=== PATIENT | male | born 1960 | race Caucasian/White ===

== ENCOUNTER → 2021-06-21 15:14 | Outpatient (POV) | payer BC, SELFPAY | PROVIDERS: Visit Provider Dermatology | DX: Z00.00 Encounter for general adult medical examination without abnormal findings (principal) ==

== ENCOUNTER 2025-03-01 23:01 | Emergency (ER) | payer BC, SELFPAY ==
[2025-03-01 23:10] VITALS: BP 156/93; PULSE 64; RESP 18; TEMP 36.6; O2SAT 97
[2025-03-01 23:12] VITALS: BP 156/93; PULSE 64; RESP 16; TEMP 36.6; O2SAT 97; BMI 34.0
--- OUTSIDE RECORDS SUMMARY | 2025-03-01 23:17 | XMS_ITS | Clinical Summary ---
Author Organization [facility] Address [address] [place] [address] Phone [email or web address] [email or web address] [email or web address] Care Medical And Health Services Manager Name Role Phone Heather Wall Primary Care Provider Allergies No known active allergies Medications atorvastatin (LIPITOR) 40 MG tabletIndication s:Hypertension, unspecified type,Hypercholes terolemia Take 1 tablet (40 mg total) by mouth 1 (one) time each day. 30 tablet 5 Active tadalafil (Cialis) 10 MG tabletIndication s:Other male erectile dysfunction Take 1 tablet (10 mg total) by mouth 1 (one) time each day if needed for erectile dysfunction. 10 tablet 2 5 Active lisinopril (Prinivil) 20 MG tabletIndication s:Hypertension, unspecified type Take 1 tablet (20 mg total) by mouth 1 (one) time each day. 90 tablet 1 5 Active Active Problems Problem Noted Date Diagnosed Date HTN (hypertension) 04/27/2023 Assessment & Plan (08/26/2024 1:02 PM EST): -He will continue the Lisinopril. Refilled for 6 months. Orders: lisinopril (Prinivil) 20 MG tablet; Take 1 tablet (20 mg total) by mouth 1 (one) time each day. OFFICE VISIT FOLLOW UP; Future Resolved Problems Problem Noted Date Diagnosed Date Resolved Date Moderate left ankle sprain 08/19/2018 0 12/03/2018 Need for prophylactic vaccin ation and inoculation against viral hepatitis 08/11/201101/07 Overview (12/05/2017): Health examination of defined subpopulation 06/22/2011 01/28/2018 Overview (12/05/2017): Cervicalgia 11/23/2010 01/28/2018 Overview (12/05/2017): Myalgia and myositis 11/23/2010 018 Overview (12/05/2017): Laboratory exam ordered as p art of routine general medical examination 10/26/2010 01/28/2018 Overview (12/05/2017): Screening for hypertension 10/13/2010 0 01/28/2018 Overview (12/05/2017): Open wound of finger 02/14/2010 018 Overview (12/05/2017): Tinnitus 01/26/2010 01/28/2018 Overview (12/05/2017): Acute conjunctivitis 10/13/2009 018 Overview (12/05/2017): Other specified disorder of cornea 05/11/2009 01/28/2018 Overview (12/05/2017): Superficial injury of conjunctiva 05/11/2009 01/28/2018 Overview (12/05/2017): Black eye 04/20/2009 01/28/2018 Overview (12/05/2017): Routine general medical exam ination at a health care facility 02/15/2009 01/28/2018 Overview (12/05/2017): Acute upper respiratory infection 09/09/2008 01/28/2018 Overview (12/05/2017): Acute sinusitis 05/12/2008 01/28/2018 Overview (12/05/2017): Other examination of ears and hearing 09/06/2007 01/28/2018 Overview (12/05/2017): Immunizations Immunization Administration Dates Next Due Covid-[address] ([address], 12yr s+) (CVX-207) 09/19/2020,08/22/2020 Hep A, Unspecified (CVX-85) 06/22/2011 Hepatitis B (ENGERIX-B:GSK)(RECOMBIVAX-HB:MERCK) (CVX-43) 08/11/2011,06/22/2011 Influenza (Afluria Fluzone) quad (CVX-158) 04/27/2021 Influenza, (Afluria Fluarix Flulaval Fluzone) quad, PF (CVX-150) 04/17/2022,04/12/2020,04/08/2019,2017 Influenza, unspecified (CVX-88) 04/17/2024 Tdap (ADACEL BOOSTRIX) (CVX-115) 02/14/2010 Family History Medical History Relation Name Comments Heart disease Father Father Macular degeneration Father Father Hypertension Maternal Grandmother maw webber Rheum arthritis Maternal Grandmother maw webber Dementia Mother Chloé Webber Hyperlipidemia Mother Chloé Webber Relation Name Status Comments Father Father Maternal Grandmother maw webber Mother Chloé Webber Social History Tobacco Use Types Packs/Day Years Used Date Smoking Tobacco: Never Smokeless Tobacco: Former Snuff Quit: 10/09/2014 Tobacco Cessation:Counseling Given: Not Answered Comments:None Alcohol Use Standard Drinks/Week Comments Not Currently 1 (1 standard drink = 0.6 oz pure alcohol) drinks a beer about once a week Intimate Partner Violence Answer Date R ecorded Insults You Not on file 10/20/2020 Threatens You Not on file 10/20/2020 Screams at You Not on file 10/20/2020 Physically Hurt Not on file 10/20/2020 Intimate Partner Violence Score Not on file 10/20/2020 Alcohol Use Answer Date Recorded Alcohol Use Status Not Currently 02/26/2024 Financial Resource Strain Answer Date R ecorded In the past 12 months has th e electric, gas, oil, or water company threatened to shut off services in your home? No 08/26/2024 Do problems getting child ca re make it difficult for you to work or study? No 08/26/2024 Do you have a high school degree? Yes 08/26/2024 Do you have a job? Yes 08/26/2024 How often does this describe you? I don't have enough money to pay my bills. Never 08/26/2024 Depression Answer Date Recorded PHQ Total Score 0 10/29/2023 Stress Answer Date Recorded Stress in your Life Low 07/02/2024 Dealing with Stress Moderately effective 024 Physical Activity Answer Date Recorded How often do you engage in m oderate physical activity for 30 minutes or more? Never 08/26/2024 Vigorous Physical Activity Never 08/26 Time Spent Sitting 4 to 6 hours 08/26/2024 Food Insecurity Answer Date Recorded Within the past 12 months, y ou worried that your food would run out before you got money to buy more. Never true 08/26/2024 Within the past 12 months, t he food you bought just didn t last and you didn t have money to get more. Never true 08/26/2024 Transportation Needs Answer Date Record ed In the past 12 months, has l ack of transportation kept you from medical appointments, meetings, work, or from getting things needed for daily living? (check all that apply) No 2024 Housing Stability Answer Date Recorded Are you worried or concerned that in the next two months you may not have stable housing that you own, rent, or stay in as a part of a household? No 08/26/[address] you li ve. Do you have problems with any of the following? (check all that apply) None of the above 08/09 Sex and Gender Information Value Date Recorded Sex Assigned at Not on file Legal Sex Male 9:25 AM CDT Gender Identity Not on file Sexual Orientation Not on file Last Filed Vital Signs Vital Sign Reading Time Taken Comments Blood Pressure 132/86 08/26/2024 10:49 AM EST Pulse 74 08/26/2024 10:49 AM EST Temperature 36.8 C (98.3 F) 08/26/2024 10:49 AM EST Respiratory Rate 16 08/26/2024 10:49 AM EST Oxygen Saturation 96% 08/26/2024 10:49 AM EST Inhaled Oxygen Concentration - - Weight 111 kg (245 lb 6.4 oz) 08/26/2024 10:49 A M EST Height 175.3 cm (5' 9 ) 08/26/2024 10:49 AM EST Body Mass Index 36.24 08/26/2024 10:49 AM EST Plan of Treatment Health Maintenance Due Date Last Done Comments Zoster Immunization (1 of 2) 2010 Dental Cleaning/Exam 10/07/2024 10/08/2023 Influenza Immunization (#1) 03/09/202504/08, 04/17/2022, 04/27/2021, Additional history exists Tetanus Diphtheria and Pertussis Immunization (2 - Td or Tdap) 06/25/2025 02/14/2010 Postponed from 02/15/2020 (Awaiting appt) Annual Preventive Exam 08/26/2025 , 10/29/2023, 10/29/2023, Additional history exists FIT or FOBT Test 09/23/2025 09/23/2024, 08/26/2024 DNA Cologuard 09/30/2027 09/29/2024, 09/06, 08/26/2024 CT Colonography 09/23/2029 09/23/2024, 08/26/2024 Sigmoidoscopy 09/23/2029 09/23/2024, 08/26/2024 Colonoscopy 09/23/2034 09/23/2024, 08/09, 10/02/2016 Colorectal Cancer Screening Combo 09/23/2034 Hepatitis A Immunization Aged Out 06/22/2011 No longer eligible based on patient's age to complete this topic Hepatitis B Immunization Discontinued 08/11/2011, 06/08 Covid-19 Immunization Discontinued 02/06/2022 , 05/11/2021, 09/19/2020, Additional history exists HIV Screening Completed 02/12/2024 Hep B Infection Screening - Triple Screen Completed 02/12/2024 Hepatitis C Screening Completed 02/12/2024 HIB Immunization Aged Out No longer e ligible based on patient's age to complete this topic HPV Immunization Aged Out No longer e ligible based on patient's age to complete this topic Pneumococcal: Ped (0 to 5 Yrs) and At-Risk Member (6 to 64 Yrs) Aged Out No longer eligible based on patient's age to complete this topic Polio Immunization Aged Out No longer eligible based on patient's age to complete this topic Procedures Procedure Name Priority Date/Time Associated Diagnosis Comments COLOGUARD Routine 09/29/2024 7:20 AM EDT Encounter for screening for malignant neoplasm of colon HEPATITIS C ANTIBODY WITH REFLEX TO HCV, RNA, QUANTITATIVE, REAL-TIME PCR Routine 02/12/2024 6:46 AM EDT Annual visit for general adult medical examination with abnormal findings HEPATITIS B SURFACE ANTIGEN Routine 02/12/2024 6:46 AM EDT Annual visit for general adult medical examination with abnormal findings HIV 1/2 AG AND ABS, FOURTH GENERATION W/REFLEXES Routine 02/12/2024 6:46 AM EDT Annual visit for general adult medical examination with abnormal findings from Last 3 Months or Most Recently Relevant to Health Maintenance Results * COLOGUARD (09/29/2024 7:20 AM EDT) Cologuard Result Negative Negative [employer] (CLIA #:[id number]) Comment: NEGATIVE TEST RESULT. A negative Cologuard result indicates a low likelihood that a colorectal cancer (CRC) or advanced adenoma (adenomatous polyps with more advanced pre-malignant features) is present. The chance that a person with a negative Cologuard test has a colorectal cancer is less than 1 in 1500 (negative predictive value >99.9%) or has an advanced adenoma is less than 5.3% (negative predictive value 94.7%). These data are based on a prospective cross-sectional study of 10,000 individuals at average risk for colorectal cancer who were screened with both Cologuard and colonoscopy. (Fernando Soria al, N Engl J Med 2014;370(14):1797-2274) The normal value (reference range) for this assay is negative. COLOGUARD RE-SCREENING RECOMMENDATION: Periodic colorectal cancer screening is an important part of preventive healthcare for asymptomatic individuals at average risk for colorectal cancer. Following a negative Cologuard result, the [place] Cancer Society and U.S. Multi-Society Task Force screening guidelines recommend a Cologuard re-screening interval of 3 years. References: [place] Cancer Society Guideline for Colorectal Cancer Screening: https://www.cancer.org/cancer/vuwcc-jiqyxs-tpazzj/pfnjpaoha-ouwdiwnic-ppkfwjx/ac s-rec ommendations.html.; Ankur DK, Tulio GRANT, Cisco SolisK, Colorectal Cancer Screening: Recommendations for Physicians and Patients from the U.S. Multi-Society Task Force on Colorectal Cancer Screening , Am J Gastroenterology 2017; 112:4775-1660. TEST DESCRIPTION: Composite algorithmic analysis of stool DNA-biomarkers with hemoglobin immunoassay. Quantitative values of individual biomarkers are not reportable and are not associated with individual biomarker result reference ranges. Cologuard is intended for colorectal cancer screening of adults of either sex, 45 years or older, who are at average-risk for colorectal cancer (CRC). Cologuard has been approved for use by the U.S. FDA. The performance of Cologuard was established in a cross sectional study of average-risk adults aged 50-84. Cologuard performance in patients ages 45 to 49 years was estimated by sub-group analysis of near-age groups. Colonoscopies performed for a positive result may find as the most clinically significant lesion: colorectal cancer [4.0%], advanced adenoma (including sessile serrated polyps greater than or equal to 1cm diameter) [20%] or non- advanced adenoma [31%]; or no colorectal neoplasia [45%]. These estimates are derived from a prospective cross-sectional screening study of 10,000 individuals at average risk for colorectal cancer who were screened with both Cologuard and colonoscopy. (Fernando Soria al, N Engl J Med 2014;370(14):8461-6578.) Cologuard may produce a false negative or false positive result (no colorectal cancer or precancerous polyp present at colonoscopy follow up). A negative Cologuard test result does not guarantee the absence of CRC or advanced adenoma (pre-cancer). The current Cologuard screening interval is every 3 years. ([place] Cancer Society and U.S. Multi-Society Task Force). Cologuard performance data in a 10,000 patient pivotal study using colonoscopy as the reference method can be accessed at the following location: www.Vonage/results. Additional description of the Cologuard test process, warnings and precautions can be found at www.BioSETrd.com. Stool 09/29/2024 7:20 AM EDT 09/30/2024 3:20 PM EDT us Heather ERWIN LAB BODY FLUIDS AND STOOLS O RDERABLES Final Result Performing Organization Address [facility] Co de Phone Number [employer] [address] [place] [address] [employer] (CLIA #:[id number]) [address] [place] [place] [address] * Hepatitis C Antibody with Reflex to HCV, RNA, Quantitative, Real-Time PCR ([id number]) (02/12/2024 6:46 AM EDT) HEPATITIS C ANTIBODY NON-REACTI VE NON-REACT ALEXIS [facility] Comment: HCV antibody was non-reactive. There is no laboratory evidence of HCV infection. In most cases, no further action is required. However, if recent HCV exposure is suspected, a test for HCV RNA (test code 94751) is suggested. For additional information please refer to http://education.Relify.zweitgeist/faq/VUK27w8 (This link is being provided for informational/ educational purposes only.) Blood (Blood, Venous) 02/12/2024 6:46 AM EDT 02/13/2024 5:50 AM EDT us Sandra Soriano NP LAB BLOOD ORDERABLES Final Res ult Performing Organization Address City/[facility] Co de Phone Number [facility] [address] [place] [address] * HIV 1/2 Antigen and Antibodies, 4th Generation, with Reflexes ([id number]) (02/12/2024 6:46 AM EDT) HIV Combo AB/AG NON-REACT ALEXIS NON-REACT ALEXIS [facility] Contreras Comment: HIV-1 antigen and HIV-1/HIV-2 antibodies were not detected. There is no laboratory evidence of HIV infection. PLEASE NOTE: This information has been disclosed to you from records whose confidentiality may be protected by state law. If your state requires such protection, then the state law prohibits you from making any further disclosure of the information without the specific written consent of the person to whom it pertains, or as otherwise permitted by law. A general authorization for the release of medical or other information is NOT sufficient for this purpose. For additional information please refer to http://Vigme.Ule/faq/GKG867 (This link is being provided for informational/ educational purposes only.) The performance of this assay has not been clinically validated in patients less than 2 years old. Blood (Blood, Venous) 02/12/2024 6:46 AM EDT 02/13/2024 5:50 AM EDT Sandra Soriano NP LAB BLOOD ORDERABLES Final Res ult Performing Organization Address City/State/[facility] Co de Phone Number [facility] [address] [place] [address] * Hepatitis B Surface Antigen with Reflex Confirmation?? ([id number]) (02/12/2024 6:46 AM EDT) Hepatitis B Surface Antigen NON-REACTI VE NON-REACTI VE [facility] Comment: For additional information, please refer to http://Vigme.Ule/faq/BBN571 (This link is being provided for informational/ educational purposes only.) Blood (Blood, Venous) 02/12/2024 6:46 AM EDT 02/13/2024 5:50 AM EDT Sandra Soriano NP LAB BLOOD ORDERABLES Final Res ult [facility] [address] [place] [address] from Last 3 Months or Most Recently Relevant to Health Maintenance Insurance [facility] Address: [address] [facility] [id number] [place] [address] Care Teams Medical And Health Services Manager Relationship Specialty Start Date End Date Heather Wall PA [address] [place] [address] PCP - General Family Medicine 08/26/24
--- NOTE | 2025-03-01 23:22 | HMH.EDGENADL ---
Discharge Plan Disposition Patient Disposition: Home, Self-Care Referrals Follow up/Referrals: Arthur Montiel MD [Primary Care Provider, Medical] - See instructions Activity Restrictions/Add. Instructions Additional Instructions/Restrictions: Please follow-up with your primary care provider. Please return to the emergency department if you develop any new or worsening symptoms or become concerned for your health. Clinical Impressions Clinical Impression: Head trauma Qualifiers: Encounter type: initial encounter Qualified Code(s): S09.90XA - Unspecified injury of head, initial encounter Print Language Print Language: Maltese Discharge ED Provider: Nikko Stewart General Adult HPI General Chief complaint: Fall Stated complaint: A/O 03-01 fell hit L side of head, did blackou Time Seen by Provider: 03/01/25 23:01 Mode of Arrival: Ambulatory Source of Information: Patient Description of Symptoms (Recalled from ER Triage Doc. 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 pt states he had LOC, pt denies blood thinners. pt is alert and has hematoma and scrap to left eyebrow. no bleeding externally. History of Present Illness HPI narrative: 64-year-old male with history of hypertension presents for syncope and head trauma. He reports that he was laughing hysterically while watching a significant median on TV. He left so hard that he got short of breath and stood up. Upon standing he blacked out and struck a chair on his way to the ground, he again struck his head on the same side on the ground. He woke up and immediately after. Had no vomiting, no amnesia. He is otherwise felt fine. They put some ice on his head and decided to come to the ER. Patient reports that he feels well, does not have any neck pain chest pain abdominal pain. He does not smoke, heavily drink or use any recreational drugs. He reports that he sometimes gets lightheaded when he laughs a lot but he has not passed all the way out before. He denies any chest pain or cardiac symptoms previous to or after the incident. Related Data Allergies Allergy/AdvReac Type Severity Reaction Status Date / Time NO KNOWN ALLERGIES Allergy Uncoded 06/26/17 14:25 [facility] Disclaimer: The information contained in this section may have been updated after the patient was seen, as this information can be updated by other users. Social History Smoking Status: Never smoker alcohol intake: never current occupational status: employed Travel in the last 8 weeks?: None ROS Obtained: Yes All systems reviewed & no additional complaints except as documented Physical Exam General General appearance: alert and in no apparent distress Head Head exam: normocephalic and other (Abrasion/hematoma to the left maxilla and frontal parietal scalp, no malocclusion) Eye Eye exam: Present normal appearance, PERRL and EOMI ENT ENT exam: Present normal oropharynx and normal external ear exam Neck Neck exam: Present normal inspection and full ROM Chest Chest inspection: Present normal inspection and symmetric chest wall rise; Absent tenderness Respiratory Respiratory exam: Present normal lung sounds bilaterally; Absent respiratory distress Cardiovascular Cardiovascular exam: Present regular rate and normal rhythm Abdominal Exam Abdominal exam: Present soft; Absent distention, tenderness or guarding Extremities Exam Extremities exam: Present normal inspection; Absent edema or joint swelling Back Exam Back exam: Present normal inspection; Absent tenderness Neurological Exam Neurological exam: Present alert and oriented X3; Absent motor sensory deficit Psychiatric Psychiatric exam: Present normal affect and normal mood Skin Skin exam: Present warm, dry and normal color Lymphatic Lymphatic Findings: no adenopathy Medical Decision Making Medical Records Medical records reviewed: Yes I reviewed the patient's medical records. Screening: Per USPSTF and CDC recommendations, given the prevalence of disease in our region, it is our hospital?s policy to screen for HIV and viral Hepatitis for all patients aged 18 and over and those with ongoing risk factors. Abram Inquiry Pt receiving controlled substance: No Abram was queried for this patient: No Vital Signs: 03/01/25 23:10 03/01/25 23:12 Temperature 97.9 F 97.9 F Temperature Source Oral Oral Pulse Rate 64 Pulse Rate [Right Radial] 64 Respiratory Rate 18 16 Blood Pressure 156/93 H Blood Pressure [Right Arm] 156/93 H Blood Pressure Mean [Right Arm] 114 Blood Pressure Position Supine Blood Pressure Position [Right Arm] Supine 02 Sat by Pulse Oximetry 97 97 Oxygen Delivery Method Room Air Room Air Lab Data Lab results reviewed: Yes I reviewed the patient's lab results. Orders (Tests/Meds): ORDERS Category Date Time Status EKG Request [ECG Request] Stat Y 03/01/25 23:23 Stop Req Medical Decision Narrative: 64-year-old male with history of hypertension, not on blood thinners, presents after passing out and striking his head. See HPI for details. Episode appears to be vasovagal/orthostatic in nature.. History was obtained via interactive discussion with patient, family. On arrival, patient is [afebrile, hemodynamically stable, satting appropriately, alert, oriented x4, GCS 15], moving all extremities spontaneously. Full physical exam performed and significant for small abrasion/hematoma to the left side of the face. Differential includes but is not limited to vasovagal syncope, orthostatics syncope, cardiac syncope, concussion, intracranial bleeding.. Workup initiated including EKG, which on my independent interpretation shows sinus rhythm with rate of 63. Normal [place] interval, no evidence of Brugada, WPW or other significant abnormality.. Blood work and CT imaging was considered, but deemed unnecessary due to patient is negative by [place] CT head rules. Labs were felt to be unlikely to provide significant benefit given low concern for cardiac event as history is consistent with vagal/orthostatic episode, and patient has had no other symptoms before or after the event. I had extensive discussion with patient regarding his presentation and the decision regarding CT scan. Patient was discharged in stable condition with strict return precautions. Patient is up-to-date on tetanus. Procedures Risk/Benefits of Procedure(s) Were Explained: Yes Critical Care Critical Care Time Critical Care Time: No
--- NOTE | 2025-03-01 23:23 | ECG_ITS ---
APPROVED REPORT Exam: Resting ECG HR:63 bpm ECG Measurements Heart Rate 63 AXES TX 168 P 66 QRSd 87 QRS 35 QT 399 T 1 QTc 406 Conclusion SINUS RHYTHM NONSPECIFIC T-WAVE ABNORMALITY BORDERLINE ECG UNCONFIRMED REPORT Electronically signed by : TERESA FONSECA, 03/02/2025 23:07:45
[2025-03-01 23:27] VITALS: BP 148/78; PULSE 64; RESP 16; O2SAT 96
[2025-03-01 23:30] VITALS: BP 141/78; PULSE 54; RESP 16; TEMP 36.7; O2SAT 94
[2025-03-01 23:34] VITALS: BP 141/78; PULSE 54; RESP 16; TEMP 36.7; O2SAT 98
== END 2025-03-01 23:35 | disposition home or self-care (01) ==
PROVIDERS: Emergency Provider Emergency Medicine; PCP Internal Medicine
DX: S09.90XA Unspecified injury of head, initial encounter (principal); W19.XXXA Unspecified fall, initial encounter
CPT/HCPCS: 93005; 99283; 99284